=== PATIENT | female | born 2000 | race Hispanic/Latino ===

== ENCOUNTER 2024-03-07 00:31 | Emergency (ER) | payer OTHER ==
[2024-03-07] MEDS ORDERED: levETIRAcetam 500 MG (5 mL) VIAL ONE (01:25)
== END 2024-03-07 02:54 | disposition home or self-care (01) ==
LOC: ERS 00:31
DX: R56.9 Unspecified convulsions (principal); Z75.8 Other problems related to medical facilities and other health care; Z55.0 Illiteracy and low-level literacy
CPT/HCPCS: 93005; 96365; J1953

== ENCOUNTER 2024-04-20 20:09 | Emergency (ER) | payer OTHER ==
[2024-04-20] MEDS ORDERED: Morphine 4 MG/ML VIAL ONE (20:22)
[2024-04-20] MEDS ORDERED: levETIRAcetam 500 MG (5 mL) VIAL ONE (20:23)
[2024-04-20] MEDS ORDERED: Ondansetron PF 4 MG/2 ML Vial ONE (20:23)
[2024-04-20 21:07] LABS: BHCG - Serum Negative (NEGATIVE); Pregs Control Background? CLEAR/WHITE (CLR/WHITE); Pregs Control Bar Appear? YES (CONTROL BAR)
[2024-04-20 21:11] LABS: ALT (SGPT) 14 U/L (8-55); AST (SGOT) 19 U/L (5-34); Albumin 3.8 g/dL (3.5-5.0); Alkaline Phosphatase 70 U/L (40-110); Anion Gap 11 mmol/L (10-20); BUN (Urea Nitrogen) 11 mg/dL (7.0-18.7); Bilirubin, Total 0.2 mg/dL (0.2-1.2); Calc. Creatinine Clearance 0 mL/min (70-130); Calcium 8.6 mg/dL (7.8-10.44); Carbon Dioxide 24 mmol/L (22-29); Chloride 110 mmol/L (98-107); Estimated GFR 127; Globulin 3.1 g/dL (2.4-3.5); Glucose 104 mg/dL (70-105); Lipase 23 U/L (8-78); Potassium 4.8 mmol/L (3.5-5.1); Protein, Total 6.9 g/dL (6.0-8.3); Sodium 140 mmol/L (136-145)
[2024-04-20 21:13] LABS: #Basophils Less than 0.03 10x3/uL (0.0-0.2); %Basophils 0.2 % (0.0-1.0); %Eosinophils 2.5 % (0.0-10.0); %Lymphocytes 33.8 % (21.0-51.0); %Monocytes 8.9 % (0.0-10.0); %Neutrophils 54.4 % (42.0-75.0); Hematocrit 27.7 % (36.0-47.0); Hemoglobin 8.4 g/dL (12.0-16.0); Mean Corpuscular HGB CONC 30.3 g/dL (32.0-36.0); Mean Corpuscular Hemoglobin 21.5 pg (27.0-31.0); Mean Corpuscular Volume 70.8 fL (78.0-98.0); Mean Platelet Volume 12.1 fL (7.4-10.4); Platelet Count 253 10x3/uL (130-400); RBC Distribution Width 16.1 % (11.5-14.5); Red Blood Cell (RBC) Count 3.91 mill/uL (4.20-5.40)
[2024-04-20 21:57] LABS: Elliptocytes SLIGHT = 2-5 cells HPF (0-1); Hypochromia MODERATE=16-30 cells HPF (0-5); Microcytosis SLIGHT = 6-15 cells HPF (0-5); Polychromasia MODERATE = 3-4 cells HPF (0-2)
[2024-04-20 21:58] LABS: Platelet Adequacy Comment Platelets Normal
== END 2024-04-20 21:23 ==
LOC: ERS 20:09 → EEVIPCON 20:09 → ERS 21:23
DX: R56.9 Unspecified convulsions (principal); S09.90XA Unspecified injury of head, initial encounter; Z79.899 Other long term (current) drug therapy; W22.8XXA Striking against or struck by other objects, initial encounter
CPT/HCPCS: 36415; 70450; 71045; 72125; 80053; 83690; 84703; 85025; 93005; 96365; 96375; J1953; J2272; J2405

== ENCOUNTER 2024-10-16 16:55 | Emergency (ER) | payer OTHER ==
[2024-10-16] MEDS ORDERED: levETIRAcetam 500 MG (5 mL) VIAL ONE (17:59)
[2024-10-16 18:38] LABS: Pregnancy Test - Urine (BHCG) Negative (Negative); Pregu Control Background? CLEAR/WHITE (CLR/WHITE); Pregu Control Bar Appear? YES (CONTROL BAR)
[2024-10-16 18:40] LABS: Bilirubin Negative (Negative); Blood, Urine Negative (Negative); CAUTI Indications for Culture Alt mental st,lethar; Clarity Clear (Clear); Glucose, Urine (Dipstick) Normal (Negative); Ketone, Urine Negative (Negative); Leukocyte 250 Leu/uL (Negative); Nitrite Negative (Negative); Protein, Urine (Dipstick) Negative (Neg-Trace); Specific Gravity, Urine 1.013 (1.002-1.036); Urobilinogen Normal mg/dL (Less than 2); WBC/HPF 0-3 HPF (0-3)
[2024-10-16 18:43] LABS: Bacteria/HPF 1+ HPF (None Seen); Urine Culture Reflex No No
[2024-10-16 19:18] LABS: ALT (SGPT) 11 U/L (Less than 34); AST (SGOT) 26 U/L (11-34); Albumin 4.1 g/dL (3.1-4.5); Alkaline Phosphatase 68 U/L (40-110); Anion Gap 8 mmol/L (10-20); BUN (Urea Nitrogen) 15 mg/dL (7.0-18.7); Bilirubin, Total 0.2 mg/dL (0.3-1.2); Calc. Creatinine Clearance 0 mL/min (70-130); Calcium 8.7 mg/dL (7.8-10.44); Carbon Dioxide 26 mmol/L (22-29); Chloride 110 mmol/L (98-107); Estimated GFR 125; Globulin 2.6 g/dL (2.4-3.5); Glucose 104 mg/dL (70-105); Protein, Total 6.7 g/dL (6.0-8.3); Sodium 140 mmol/L (136-145)
[2024-10-16 19:19] LABS: #Basophils Less than 0.03 10x3/uL (0.0-0.2); #Monocytes 0.29 10x3/uL (0.11-0.59); #Neutrophils 2.61 10x3/uL (1.40-6.50); %Basophils 0.4 % (0.0-1.0); %Eosinophils 2.2 % (0.0-10.0); %Lymphocytes 33.3 % (21.0-51.0); %Monocytes 6.4 % (0.0-10.0); %Neutrophils 57.5 % (42.0-75.0); Hematocrit 33.4 % (36.0-47.0); Hemoglobin 10.1 g/dL (12.0-16.0); Mean Corpuscular HGB CONC 30.2 g/dL (32.0-36.0); Mean Corpuscular Hemoglobin 22.9 pg (27.0-31.0); Mean Corpuscular Volume 75.7 fL (78.0-98.0); Platelet Count 169 10x3/uL (130-400); RBC Distribution Width 23.7 % (11.5-14.5); Red Blood Cell (RBC) Count 4.41 mill/uL (4.20-5.40); White Blood Cell (WBC) Count 4.54 10x3/uL (4.8-10.8)
== END 2024-10-16 20:06 | disposition home or self-care (01) ==
LOC: ERS 16:55
DX: R56.9 Unspecified convulsions (principal); N39.0 Urinary tract infection, site not specified
CPT/HCPCS: 36415; 36416; 80053; 81001; 81025; 85025; 93005; 96374; J1953